=== PATIENT | female | born 1995 | race Caucasian/White ===

== ENCOUNTER 2020-09-14 09:47 | Inpatient (IN) | payer OTHER ==
[2020-09-14] VITALS (14 sets, daily range): BP systolic 99–134; BP diastolic 48–75
[~2020-09-14] VITALS: Ht 172.7 cm; Wt 107.6 kg
[2020-09-14] MEDS ORDERED: PREN1CHW PO (10:38)
[2020-09-14] MEDS ORDERED: LACTATED RINGER'S 1000 ML IV ONE (11:30)
[2020-09-14] MEDS ORDERED: miSOPROStol 50 MCG 1/2 TAB (S0191) PO ONE ×3 (11:30→20:00)
[2020-09-14 11:32] LABS: HEMATOCRIT 36.7 % (36.0-47.0); HEMOGLOBIN 11.3 g/dl (12.0-15.5); MEAN CORPUSCULAR HEMOGLOBIN 27.7 pg (27.0-33.0); MEAN CORPUSCULAR HGB CONC 30.8 g/dl (32.0-36.5); PLATELET COUNT, AUTOMATED 279 10^3/uL (150-450); RED BLOOD COUNT 4.08 10^6/uL (4.00-5.40); WHITE BLOOD COUNT 12.5 10^3/uL (4.0-10.0)
[2020-09-14] MEDS: LR 1,000 ML IV SCH ×3 (11:39→23:48)
--- NOTE | 2020-09-14 12:31 | HPEPDOC ---
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 Past Medical History Medical History HEART MURMUR BENIGN Surgical History: Denies/None Family History Significant Family History: No pertinent family hx Social History Marital Status: Seperated Family situation: Spouse/partner home Psychosocial History: No pertinent psych hx * Smoker: non-smoker Alcohol: Denies Drugs: denies Abuse Violence Screening Have you been hit/kicked/slapp: No Have you been sexually assault: No Imunizations Tdap status: current Influenza Status: current Allergies Coded Allergies: Penicillins (Verified Allergy, Severe, 09/14/20) bee venom protein (honey bee) (Verified Allergy, Severe, THROAT SWELLS, 09/14/20) Medications Scheduled Comb No.42/Folic Acid (Prena1 Chew Tablet) 1.4 Mg Tab.ch.bph, 1 TAB PO DAILY Physical Examination Physical Examination GENERAL: Alert and oriented times three. BREAST: . ABDOMEN: Gravid and non-tender to touch. FETUS: Is vertex (VTX) by sterile vaginal examination (SVE), fetus is vertex (VTX) by Philippe. HEART RATE: Regular rate and rhythm. LUNGS: Clear to auscultation NO RALES NO RHONCHI EXTREMITIES: No edema. No clonus. Other physical findings CATEGORY 1 STRIP PELVIC EXAM 1 CM POSTERIOR SOFT -3 STATION VERTEX , CANDIDATE FOR CYTOTEC Vital Signs/I&O Vital Signs Date Time Temp Pulse Resp B/P (MAP) Pulse Ox O2 Delivery O2 Flow Rate FiO2 09/14/20 11:39 89 18 115/62 (79) 09/14/20 10:19 97.2 Laboratory Data 24H LABS Laboratory Tests 2 09/14/20 10:25: Nucleated Red Blood Cells % (auto) 0.0 09/14/20 11:55: Serology Scanned Report Hepatitis B Testing CBC/BMP Laboratory Tests 09/14/20 10:25 Pertinent Laboratoy Data Blood Type: B- RBC Antibody Screen: Negative HIV: Negative Hepatitis B: Negative Rapid Plasma Reagin: Nonreactive Rubella: Immune Varicella: Immune Chlamydia/Gonorrhea: Negative Group B Streptococcus: Negative Cystic Fibrosis: Negative Anatomy Ultrasound Placenta Location: Anterior Steroid Therapy Steroid Therapy: No Vaginal Examination Dilation: 2cm Effacement: 50% Station: -3 Cervical Consistency: Medium Cervical Position: Posterior Presentation: Cephalic presentation Assessment Variability: Moderate Accelerations: Present Decelerations: None Tocometer Contractions: No Assessment/Plan Assessment 24 -year-old (G3 para (P 0 at 41.1weeks Presents to Labor and Delivery FOR IOL Plan Admit and orient. [employer] Employee and consent. Diet: REG Group B Streptococcus (GBS) [negative]. Labs and intravenous (IV) per unit protocol. Counseled on Pitocin and induction of labor (IOL OR CYTOTEC Lactated Ringers (LR): Bolus 1000 mL, then at 125 mL/hr. Anticipate [normal spontaneous delivery ()]. C-S as appropriate. Labor and Delivery Counseling REVIEWED PLAN OF IOL WITH INITIAL IOL WITH CYTOTEC TO FOLLOW WITH LOMAS BULB AND PITOCIN. REVIEWED RISK IOL IE TACHYCARDIA, UTERINE ASYSTOLE, UTERINE RUPTURE USE OF THESE OR FORCEPS OR VACUUM MAY BE NEEDED FOR WELL BEING THAT CONTINUED LABOR MY CAUSE TACHYCARDIA OR NRFHT THAT MATERNAL PUSHING CANNOT ACHIEVE IMMINENT DELIVERY CS MAY BE REQUIRED RISH HEMORRHAGE INFECTION PERFORATION . REMOTE BLOOD TRANSFUSION REMOTE HYSTERECTOMY FOR LIFE THREATENING BLEEDING ADMISSION TO NICU . SCRATCHES HEMATOMA OR INTRACRANIAL BLEED PATIENT EXPRESSED UNDERSTANDING ALL QUESTIONS ANSWERED CATEGORY 1 STRIP SAFE TO PROCEED . Rock Fry MD Sep 14, 2020 12:29
[2020-09-14] MEDS ORDERED: PROMETHAZINE INJ 25 MG/ML VIAL (J2550) IV ONE (20:00)
[2020-09-14] MEDS ORDERED: BUTORPHANOL 2 MG/ML INJ (J0595) IV ONE (20:00)
[2020-09-14] MEDS ORDERED: ACETAMINOPHEN 500 MG TAB PO ONE (20:00)
--- NOTE | 2020-09-14 23:44 | IPNPDOC ---
Text Note Date of Service The patient was seen on 09/14/20. NOTE 09/14/20/11.30 PM REVIEWED FOR COOK'S CATHETER HAVING OCCASIONAL LATE WITH RE COVERY. PELVIC EXAM 2 CM SOFT POSTERIOR REVIEWED PROCESS OF CATHETER PLACEMENT WITH PATIENT CONSENTED PATIENT APPREHENSIVE TO PROCEDURE DISCUSSED WITH FRIEND. HOWEVER CATHETER IN PLACE WITH 60/40 CC . CONTRACTIONS CONTINUE EPIDURAL NEEDED SAFE TO PROCEED VS,Fishbone, I+O VS, Fishbone, I+O Laboratory Tests 09/14/20 10:25 Vital Signs Date Time Temp Pulse Resp B/P (MAP) Pulse Ox O2 Delivery O2 Flow Rate FiO2 09/14/20 22:07 80 16 123/60 (81) 09/14/20 18:12 98.0 Rock Fry MD Sep 14, 2020 23:43
[2020-09-15] VITALS (26 sets, daily range): BP systolic 108–139; BP diastolic 55–84
[2020-09-15] MEDS ORDERED: OXYTOCIN DRIP 30 UNITS in IV 1 EA IV SCH (01:00)
--- NOTE | 2020-09-15 01:08 | IPNPDOC ---
Text Note Date of Service The patient was seen on 09/15/20. NOTE 09/15/20 0100 AM LOMAS BULB FELL OUT TIGHT 2 CM CONTRACTIONS FALLEN OFF CAT EGORY 2 MODERATE VARIABILITY PLAN AUGMENT WITH PITOCIN , SAFE TO PROCEED VS,Fishbone, I+O VS, Fishbone, I+O Laboratory Tests 09/14/20 10:25 Vital Signs Date Time Temp Pulse Resp B/P (MAP) Pulse Ox O2 Delivery O2 Flow Rate FiO2 09/15/20 00:25 68 16 118/60 (79) 09/14/20 18:12 98.0 I&O- Last 24 Hours up to 6 AM 09/15/20 06:00 Intake Total 2619 ml Output Total 550 ml Balance 2069 ml Rock Fry MD Sep 15, 2020 01:07
[2020-09-15] MEDS ORDERED: FENTANYL 2MCG/ML ROPIVACAINE 0.2% IN 0.9% NACL 100ML IVBAG As Ordered ONE (02:25)
[2020-09-15] MEDS ORDERED: EPIDURAL/PCA KEYS XX PRN (04:15)
[2020-09-15] MEDS ORDERED: ePHEDrine SULFATE 25 MG/5 ML(5MG/ML) SYRINGE IV PRN (04:15)
[2020-09-15] MEDS ORDERED: diphenhydrAMINE 50MG/ML VIAL (J1200) IV PRN (04:15)
[2020-09-15] MEDS ORDERED: ONDANSETRON 4MG/2ML VIAL IV PRN (04:15)
[2020-09-15] MEDS ORDERED: FENTANYL/ROPIVACAINE/NACL BAG 100 ML EPIDURAL SCH (04:15)
[2020-09-15] MEDS ORDERED: EPIDURAL COMMENT XX SCH (04:15)
[2020-09-15] MEDS ORDERED: REFRIGERATOR IV KEYS XX PRN (04:15)
[2020-09-15] MEDS ORDERED: LACTATED RINGER'S 1000 ML IV PRN (04:15)
[2020-09-15] MEDS ORDERED: NALOXONE INJ 0.4MG/1ML VIAL (J2310 PER 1MG) IV PRN (04:15)
--- NOTE | 2020-09-15 05:32 | IPNPDOC ---
Text Note Date of Service The patient was seen on 09/15/20. NOTE 09/15/20 0527 am assessment asked for iv meds then requested epidural . IV MEDS CANCELLED EPIDURAL COMPLETED DIFFICULT PATIENT TO PLACE. WORKING WELL HAD SROM CLEAR LIQUOR, EXAMINATION 4 CM SOFT 75% EFFACED -3 STATION NOW CATEGORY 1 STRIP . RESTARTED PITOCIN VS,Fishbone, I+O VS, Fishbone, I+O Laboratory Tests 09/14/20 10:25 Vital Signs Date Time Temp Pulse Resp B/P (MAP) Pulse Ox O2 Delivery O2 Flow Rate FiO2 09/15/20 05:10 78 16 123/58 (79) 09/14/20 18:12 98.0 I&O- Last 24 Hours up to 6 AM 09/15/20 06:00 Intake Total 3619 ml Output Total 550 ml Balance 3069 ml Rock Fry MD Sep 15, 2020 05:31
[2020-09-15 07:30] LABS: CORD GAS ABE A -1.8; CORD GAS ABE V -2.3; CORD GAS HCO3 A 22.3 MEQ/L; CORD GAS HCO3 V 22.4 MEQ/L; CORD GAS O2 SAT A 72.8 %; CORD GAS O2 SAT V 73.9 %; CORD GAS PCO2 A 36.4 mmHg; CORD GAS PCO2 V 38.5 mmHg; CORD GAS PH A 7.405 UNITS; CORD GAS PH V 7.382 UNITS; CORD GAS PO2 A 37.8 mmHg; CORD GAS PO2 V 31.9 mmHg; CORD GAS SBC A 22.3 MEQ/L; CORD GAS SBC V 21.9 MEQ/L; CORD GAS TCO2 A 23.4 MEQ/L; CORD GAS TCO2 V 23.5 MEQ/L
[2020-09-15] MEDS ORDERED: OXYTOCIN INJ 10 UNITS/ML VIAL (J2590) IV ONE ×2 (08:30→09:15)
[2020-09-15] MEDS ORDERED: METHYLERGONOVINE MALEATE 0.2 MG TAB PO PRN (08:30)
[2020-09-15] MEDS ORDERED: ACETAMINOPHEN 500 MG TAB PO PRN (08:30)
[2020-09-15] MEDS ORDERED: ACETAMINOPHEN TAB 650MG DOSE (2X325MG) PO PRN (08:30)
[2020-09-15] MEDS ORDERED: DIBUCAINE 1% OINTMENT 30GM TOP PRN (08:30)
[2020-09-15] MEDS ORDERED: MEASLES,MUMPS,RUBELLA VACCINE INJ (MMR-II) (90707) SC SCH (08:30)
[2020-09-15] MEDS ORDERED: IBUPROFEN 800 MG TAB PO PRN (08:30)
[2020-09-15] MEDS ORDERED: MOM 30ML SUSPENSION UDC PO PRN (08:30)
[2020-09-15] MEDS ORDERED: DOCUSATE SODIUM 100 MG CAP PO PRN (08:30)
[2020-09-15] MEDS ORDERED: OXYTOCIN DRIP 30 UNITS in IV 1 EA IV ONE (08:30)
[2020-09-15] MEDS ORDERED: RHOGAM 300 MCG (1500 IU) INJ (J2790) IM SCH (08:30)
[2020-09-15] MEDS ORDERED: ANUSOL HC CREAM 30GM TOP PRN (08:30)
[2020-09-15] MEDS ORDERED: IBUPROFEN 600MG TAB PO PRN (08:30)
--- NOTE | 2020-09-15 08:36 | DNPDOC ---
[facility] Delivery Note Delivery Note DATE OF DELIVERY: 09/15/2020 PREDELIVERY DIAGNOSIS: 41.3 weeks' gestation and labor. POST DELIVERY DIAGNOSIS: Delivered. PROCEDURE: [Spontaneous vaginal delivery BULL GANG WORKER: Dr. Hang HICKS ANESTHESIA: EPIDURAL ESTIMATED BLOOD LOSS: 200 mL. FINDINGS: 7 pound 7 ounce F infant, Score 9/9 SHORT CORD DELIVERY SUMMARY: Patient is a 25 year-old 1 now para who was admitted to labor and delivery , HAD SPONTANEOUS VAGINAL DELIVERY FEMALE 9/9 ARTERIAL PH 7.40 B.E. -1.8 VENOUS PH 7.38 B.E. -2.3 INTACT PERINEUM SMALL VARICOSITY RT REPAIRED UTERUS CONTRACTED DOWN WITH PITOCIN LATERAL AND ANTERIOR AND POSTERIOR LUCAS INTACT Rock Hicks MD Sep 15, 2020 08:36
[2020-09-15] MEDS: PRENATAL VITAMINS CHEWABLE TABLET PO SCH (09:45)
[2020-09-15] MEDS: LR 1,000 ML IV SCH ×2 (11:18→19:18)
[2020-09-16] MEDS: LR 1,000 ML IV SCH ×2 (03:18→11:18)
--- NOTE | 2020-09-16 04:26 | IPNPDOC ---
Progress Note Date of Service: Sep 16, 2020 Day#: 1 Progress Note SUBJECT: Kiesha is a 25-year-old 1now Para 1 status post uncomplicated spontaneous vaginal delivery at 41-3/7 weeks' on 09/15/2020 of a 7 pound 7 ounce F infant, Score 9/9 , doing well day # 1. She has been ambulating, voiding spontaneously without issue and tolerating regular diet. Breast feeding without issue. Reports lochia is minimal . Denies any pain. Voiding and stooling without difficulty. OBJECTIVE: VITAL SIGNS: Within normal limits, afebrile. Alert and oriented times three. normal work of breathing Heart rate: Regular rate and rhythm Abdomen: Fundus firm at U-2. Soft, NTTP. ASSESSMENT: Kiesha is a 25-year-old 1now Para 1 status post uncomplicated spontaneous vaginal delivery at 41-3/7 weeks' on 09/15/2020 of a 7 pound 7 ounce F infant, Score 9/9 , doing well day # 1. Vitals within normal limits, afebrile, hemodynamically stable with no evidence of infection. PLAN: 1. continue inpatient admission 2. Tylenol and Motrin for pain. 3. Encourage breast feeding and ambulation. 4. minipill for contraception 5. Routine PP visit in 6 weeks in clinic. 6. Discussed return precautions at length. VS, I&O, 24H, Fishbone Vital Signs/I&O Vital Signs Date Time Temp Pulse Resp B/P (MAP) Pulse Ox O2 Delivery O2 Flow Rate FiO2 09/15/20 17:51 98.6 87 18 114/57 (76) I&O- Last 24 Hours up to 6 AM 09/16/20 06:00 Intake Total 463.2 ml Output Total 1025 ml Balance -561.8 ml Laboratory Data 24H LABS Laboratory Tests 2 09/15/20 07:19: Cord Arterial Blood pH 7.405, Cord Arterial Blood PCO2 36.4, Cord Arterial Blood PO2 37.8, Cord Arterial Blood HCO3 22.3, Cord Arterial Blood Total CO2 23.4, Cord Arterial Blood Base Excess -1.8, Cord Arterial Base Excess (Standard 22.3, Cord Arterial Bld Oxygen Saturation 72.8, Cord Venous Blood pH 7.382, Cord Venous Blood PCO2 38.5, Cord Venous Blood PO2 31.9, Cord Venous Blood HCO3 22.4, Cord Venous Blood Total CO2 23.5, Cord Venous Base Excess (Actual) -2.3, Cord Venous Base Excess (Standard) 21.9, Cord Venous Blood Oxygen Saturation 73.9 MARVIN MCINTYRE MD Sep 16, 2020 04:26
[2020-09-16 06:23] VITALS: BP 125/60
[2020-09-16 08:28] LABS: HEMATOCRIT 29.6 % (36.0-47.0); HEMOGLOBIN 9.1 g/dl (12.0-15.5); MEAN CORPUSCULAR HEMOGLOBIN 28.1 pg (27.0-33.0); MEAN CORPUSCULAR HGB CONC 30.7 g/dl (32.0-36.5); MEAN CORPUSCULAR VOLUME 91.4 fl (80.0-96.0); PLATELET COUNT, AUTOMATED 210 10^3/uL (150-450); RED BLOOD COUNT 3.24 10^6/uL (4.00-5.40); WHITE BLOOD COUNT 11.3 10^3/uL (4.0-10.0)
[2020-09-16] MEDS: PRENATAL VITAMINS CHEWABLE TABLET PO SCH (09:12)
[2020-09-16 18:00] VITALS: BP 116/59
[2020-09-17 05:43] VITALS: BP 115/59
--- NOTE | 2020-09-17 08:08 | IPNPDOC ---
Progress Note Date of Service: Sep 17, 2020 Day#: 2 Progress Note SUBJECT: Kiesha is a 25yo now status post uncomplicated spontaneous vag inal delivery doing well day # 2. She has been ambulating, voiding spontaneously without issue and tolerating regular diet. Breast feeding without issue. Reports lochia is decreasing. Pain controlled on oral pain meds. OBJECTIVE: VITAL SIGNS: Within normal limits, afebrile. Alert and oriented times three. Abdomen: Fundus firm at U-2. Soft, NTTP. : no edema, small lochia ASSESSMENT: Kiesha is a 25yo now status post uncomplicated spontaneous vaginal delivery doing well day # 2. Vitals within normal limits, afebrile, hemodynamically stable with no evidence of infection. PLAN: 1. Discharge to home today 2. Tylenol and Motrin for pain. 3. Encourage breast feeding and ambulation. 4. Encourage regular diet as tolerated 5. Routine PP visit in 6 weeks in clinic. 6. Discussed return precautions at length. VS, I&O, 24H, Fishbone Vital Signs/I&O Vital Signs Date Time Temp Pulse Resp B/P (MAP) Pulse Ox O2 Delivery O2 Flow Rate FiO2 09/17/20 05:43 98.2 79 18 115/59 (77) I&O- Last 24 Hours up to 6 AM 09/17/20 05:59 Intake Total 480 ml Balance 480 ml YOEL PIERRE DO Sep 17, 2020 08:08
[2020-09-17] MEDS: PRENATAL VITAMINS CHEWABLE TABLET PO SCH (08:45)
== END 2020-09-17 11:43 | disposition home or self-care (01) | DRG 807 ==
LOC: M LDI 09:47 → M OBS 09-15 13:26
PROVIDERS: ADMIT Obstetrics & Gynecology; ATTEND Obstetrics & Gynecology
PROC: 3E0P7GC Introduction of Other Therapeutic Substance into Female Reproductive, Via Natural or Artificial Opening (ICD-10-PCS; 2020-09-14)
PROC: 10E0XZZ Delivery of Products of Conception, External Approach (ICD-10-PCS; principal; 2020-09-15)
DX: O48.0 Post-term pregnancy (principal); Z37.0 Single live birth; Z3A.41 41 weeks gestation of pregnancy

== ENCOUNTER 2023-03-11 01:07 | Outpatient (CLI) | payer SELFPAY ==
[~2023-03-11] VITALS: Ht 172.7 cm; Wt 110.2 kg
[~2023-03-11 01:07] MED LIST: PREN1CHW PO
[2023-03-11 01:32] VITALS: BP 117/69
[2023-03-11] MEDS ORDERED: PRIL20TA2 PO (01:33)
[2023-03-11] MEDS ORDERED: MIRA3350 PO (01:33)
== END 2023-03-11 02:38 | disposition home or self-care (01) ==
LOC: M LDO 01:07
PROVIDERS: ATTEND Obstetrics & Gynecology
DX: O22.43 Hemorrhoids in pregnancy, third trimester (principal); Z3A.30 30 weeks gestation of pregnancy; O99.613 Diseases of the digestive system complicating pregnancy, third trimester; K59.00 Constipation, unspecified
CPT/HCPCS: 59025; G0463

== ENCOUNTER 2023-05-07 08:13 | Inpatient (IN) | payer OTHER ==
[~2023-05-07] VITALS: Ht 172.7 cm; Wt 118.4 kg
[~2023-05-07 08:13] MED LIST changes: +MIRA3350 PO; +PRIL20TA2 PO
[2023-05-07 08:44] VITALS: BP 137/78
[2023-05-07] MEDS ORDERED: HOME MED LIST COMPLETE! XX SCH (09:25)
[2023-05-07] MEDS ORDERED: LR 1,000 ML IV SCH (10:30)
[2023-05-07] MEDS ORDERED: LIDOCAINE 1% MDV 20ML VIAL INFIL PRN (10:30)
[2023-05-07] MEDS ORDERED: OXYTOCIN DRIP 30 UNITS in IV 1 EA IV PRN ×4 (10:30)
[2023-05-07] MEDS ORDERED: TRANEXAMIC ACID INJection 1,000 MG in NS 100 ML IV PRN (10:30)
[2023-05-07] MEDS ORDERED: METHYLERGONOVINE MALEATE 0.2MG/ML 1ML VIAL IM PRN (10:30)
[2023-05-07 10:56] LABS: HEMATOCRIT 32.2 % (36.0-47.0); HEMOGLOBIN 10.2 g/dl (12.0-15.5); MEAN CORPUSCULAR HEMOGLOBIN 25.9 pg (27.0-33.0); MEAN CORPUSCULAR HGB CONC 31.7 g/dl (32.0-36.5); MEAN CORPUSCULAR VOLUME 81.7 fl (80.0-96.0); PLATELET COUNT, AUTOMATED 287 10^3/uL (150-450); RED BLOOD COUNT 3.94 10^6/uL (4.00-5.40); WHITE BLOOD COUNT 12.2 10^3/uL (4.0-10.0)
[2023-05-07] MEDS: miSOPROStol 25MCG 1/4 TABLET PO SCH ×4 (11:06→23:35)
[2023-05-07 11:08] VITALS: BP 133/71
[2023-05-07 13:01] VITALS: BP 119/56
[2023-05-07 14:05] VITALS: BP 140/71
[2023-05-07 15:09] VITALS: BP 134/74
[2023-05-07 16:23] LABS: HIV 1&2 SCREEN NEGATIVE (NEGATIVE)
[2023-05-07 17:01] VITALS: BP 124/71
[2023-05-08] VITALS (21 sets, daily range): BP systolic 125–181; BP diastolic 59–104; O2SAT 97
[2023-05-08] MEDS: miSOPROStol 25MCG 1/4 TABLET PO SCH (03:54)
[2023-05-08] MEDS ORDERED: miSOPROStol 50MCG 1/2 TABLET PO ONE ×2 (07:55→14:55)
[2023-05-08] MEDS ORDERED: OXYTOCIN DRIP 30 UNITS in IV 1 EA IV SCH ×2 (18:00→21:15)
[2023-05-08] MEDS ORDERED: LR 1,000 ML IV SCH (18:00)
[2023-05-08] MEDS ORDERED: LR 500 ML IV PRN (19:50)
[2023-05-08] MEDS ORDERED: diphenhydrAMINE 50MG/ML VIAL IV PRN (19:50)
[2023-05-08] MEDS ORDERED: FENTANYL/ROPIVACAINE/NACL BAG 100 ML EPIDURAL SCH (19:50)
[2023-05-08] MEDS ORDERED: ePHEDrine SULFATE 25 MG/5 ML(5MG/ML) SYRINGE IVP PRN (19:50)
[2023-05-08] MEDS ORDERED: EPIDURAL/PCA KEYS XX PRN (19:50)
[2023-05-08] MEDS ORDERED: NALOXONE INJ 0.4MG/1ML VIAL IV PRN (19:50)
[2023-05-08] MEDS ORDERED: ONDANSETRON 4MG 2ML VIAL IV PRN ×2 (19:50→21:15)
[2023-05-08 20:55] LABS: CORD GAS ABE V -3.9; CORD GAS HCO3 V 20.9 MMOL/L; CORD GAS O2 SAT V 64.5 %; CORD GAS PCO2 V 37.7 mmHg; CORD GAS PH V 7.361 UNITS; CORD GAS PO2 V 23.7 mmHg; CORD GAS SBC V 20.3 MMOL/L
[2023-05-08 20:57] LABS: CORD GAS ABE A -4.5; CORD GAS HCO3 A 21.2 MMOL/L; CORD GAS O2 SAT A 44.5 %; CORD GAS PCO2 A 41.5 mmHg; CORD GAS PH A 7.326 UNITS; CORD GAS PO2 A 18.4 mmHg; CORD GAS SBC A 19.3 MMOL/L; CORD GAS TCO2 A 22.5 MMOL/L
[2023-05-08] MEDS ORDERED: METOCLOPRAMIDE INJ 10MG/2ML VIAL IV PRN (21:15)
[2023-05-08] MEDS: LR 1,000 ML IV SCH (21:15)
[2023-05-08] MEDS ORDERED: METHYLERGONOVINE MALEATE 0.2 MG TAB PO PRN (21:15)
[2023-05-08] MEDS ORDERED: DOCUSATE SODIUM 100MG CAPSULE PO PRN (21:15)
[2023-05-08] MEDS ORDERED: DIBUCAINE 1% OINTMENT 30GM TOP PRN (21:15)
[2023-05-08] MEDS ORDERED: RHOGAM 300MCG (1500IU) INJ IM SCH (21:15)
[2023-05-08] MEDS: IBUPROFEN 800 MG TAB PO SCH (21:53)
[2023-05-08] MEDS: ACETAMINOPHEN 500 MG TAB PO SCH (22:00)
[2023-05-09] MEDS: ACETAMINOPHEN 500 MG TAB PO SCH ×4 (03:22→22:30)
[2023-05-09] MEDS: LR 1,000 ML IV SCH (05:15)
[2023-05-09 06:00] VITALS: BP 101/50; O2SAT 99
[2023-05-09] MEDS: IBUPROFEN 800 MG TAB PO SCH ×3 (06:00→22:29)
[2023-05-09 07:13] LABS: HEMOGLOBIN 9.9 g/dl (12.0-15.5); MEAN CORPUSCULAR HEMOGLOBIN 25.9 pg (27.0-33.0); MEAN CORPUSCULAR HGB CONC 31.9 g/dl (32.0-36.5); MEAN CORPUSCULAR VOLUME 81.2 fl (80.0-96.0); PLATELET COUNT, AUTOMATED 227 10^3/uL (150-450); RED BLOOD COUNT 3.82 10^6/uL (4.00-5.40); WHITE BLOOD COUNT 18.8 10^3/uL (4.0-10.0)
[2023-05-09] MEDS: PRENATAL VITAMINS CHEWABLE TABLET PO SCH (08:02)
[2023-05-09] MEDS ORDERED: PRENATAL VITAMINS CHEWABLE TABLET PO SCH (09:00)
[2023-05-09 18:00] VITALS: BP 146/78; O2SAT 98
[2023-05-10] MEDS: ACETAMINOPHEN 500 MG TAB PO SCH ×2 (03:52→10:09)
[2023-05-10] MEDS: IBUPROFEN 800 MG TAB PO SCH (05:53)
[2023-05-10 06:00] VITALS: BP 119/55; O2SAT 97
[2023-05-10] MEDS: PRENATAL VITAMINS CHEWABLE TABLET PO SCH (07:56)
[2023-05-10] MEDS ORDERED: MEASLES,MUMPS,RUBELLA VACCINE INJ (MMR-II) SC.IMMUN ONE (09:00)
== END 2023-05-10 12:00 | disposition home or self-care (01) | DRG 807 ==
LOC: M LDI 08:13 → M OBS 05-08 22:58
PROVIDERS: ADMIT Obstetrics & Gynecology; ATTEND Obstetrics & Gynecology
PROC: 3E0P7GC Introduction of Other Therapeutic Substance into Female Reproductive, Via Natural or Artificial Opening (ICD-10-PCS; 2023-05-07)
PROC: 10E0XZZ Delivery of Products of Conception, External Approach (ICD-10-PCS; principal; 2023-05-08)
PROC: 0KQM0ZZ Repair Perineum Muscle, Open Approach (ICD-10-PCS; 2023-05-08)
DX: O70.1 Second degree perineal laceration during delivery (principal); Z37.0 Single live birth; Z3A.39 39 weeks gestation of pregnancy; O99.214 Obesity complicating childbirth; E66.9 Obesity, unspecified

== ENCOUNTER 2023-10-03 14:00 | Emergency (ER) | payer OTHER ==
[~2023-10-03] VITALS: Ht 172.7 cm; Wt 103.5 kg
[2023-10-03] MEDS ORDERED: BACITRACIN OINTMENT 30GM TUBE TOP ONE (19:00)
[2023-10-03 19:18] VITALS: BP 123/72; TEMP 97.1; O2SAT 99
== END 2023-10-03 19:39 | disposition home or self-care (01) ==
LOC: M ED 14:00
DX: S09.90XA Unspecified injury of head, initial encounter (principal); S60.812A Abrasion of left wrist, initial encounter; V49.40XA Driver injured in collision with unspecified motor vehicles in traffic accident, initial encounter; Z91.030 Bee allergy status; Z88.0 Allergy status to penicillin; Y92.410 Unspecified street and highway as the place of occurrence of the external cause

== ENCOUNTER → 2024-03-11 | Outpatient (REF) | payer OTHER | LOC: M LAB REF 17:42 | PROVIDERS: ATTEND Registered Nurse | DX: J02.9 Acute pharyngitis, unspecified (principal) ==